=== PATIENT | male | born 1935 | race Caucasian/White ===

== ENCOUNTER 2018-11-06 18:11 | Outpatient (CLI) | payer MEDICARE, OTHER | END 2018-11-06 18:12 | disposition critical access hospital (66) | LOC: EMS 18:11 | PROVIDERS: ATTEND Surgery | DX: T14.90XA Injury, unspecified, initial encounter (principal); W19.XXXA Unspecified fall, initial encounter; Y92.002 Bathroom of unspecified non-institutional (private) residence as the place of occurrence of the external cause | CPT/HCPCS: A0425; A0429 ==

== ENCOUNTER 2018-11-06 18:27 | Emergency (ER) | payer MEDICARE, OTHER ==
[2018-11-06] MEDS ORDERED: SODIUM CHLORIDE 0.9% 500 ML IV ONE (18:35)
--- NOTE | 2018-11-06 18:36 | ED Physician Documentation ---
PD HPI Fall - Stated complaint Stated Complaint: GLF/HBD - History obtained from History obtained from: Patient, EMS - History of Present Illness Mechanism of injury: Lost balance (The patient states he remembers trying to get to the bathroom after coming home with his from a dinner republican. He had had several glasses of wine. He states he felt a little off balance and then in the bathroom felt lightheaded and fell over. He does not feel that he lost consciousness. He struck his face on the counter or sink. His states he she heard the noise and found him in the bathroom on the floor with some blood on the floor. He was awake but moaning. EMS was called and they found him on the floor still. They set him up onto the toilet to have a seat and he got lightheaded and almost fainted. They said his blood pressure at that time was 75 systolic but it improved with some IV fluids and after since being up for on the gurney for a few minutes. He was awake and conversant on route there was some slurring of speech likely consistent with alcohol use. There are no focal deficits.) Fall distance: Standing position Where injury occurred: Home Timing - onset: How many minutes ago (30), Today Injury(ies) location: Face (left periorbital area). No: Neck, Chest, Abdomen Quality of pain: Aching Associated symptoms: AMS (seemd dazed and confused with initial EMS impression). No: Neck pain, Weakness, Paresthesias, Dyspnea, Nausea / vomiting Worsens with: Palpation Contributing factors: Intoxicated (he says he drinks a glass of wine daily, and this evening had had several drinks at a dinner republican celebrating an old friend or such.). No: Anticoagulated Similar symptoms before: Has not had sx before Recently seen: Not recently seen Review of Systems Constitutional: denies: Fever Nose: denies: Rhinorrhea / runny nose, Congestion Throat: denies: Sore throat Cardiac: denies: Chest pain / pressure, Palpitations Respiratory: denies: Dyspnea, Cough GI: denies: Abdominal Pain, Nausea, Vomiting, Diarrhea, Bloody / black stool : denies: Dysuria, Frequency Skin: reports: Laceration (s) Neurologic: reports: Generalized weakness. denies: Focal weakness, Numbness, Confused, Headache Endocrine: denies: Weight loss, Easy bruising / bleeding PD PAST MEDICAL HISTORY - Past Medical History Cardiovascular: High cholesterol, Other Respiratory: None Neuro: None Endocrine/Autoimmune: None Musculoskeletal: Osteoarthritis - Present Medications Home Medications: Ambulatory Orders Medication Instructions Recorded Confirmed Aspirin 11/06/18 Irbesartan [Avapro] 11/06/18 Pravastatin Sodium 11/06/18 Zinc Gluconate [Zinc] 11/06/18 - Allergies Allergies/Adverse Reactions: Allergies Allergy/AdvReac Type Severity Reaction Status Date / Time No Known Drug Allergies Allergy Verified 11/06/18 18:35 PD ED PE NORMAL - Vitals Vital signs reviewed: Yes - General General: Alert and oriented X 3 (he is oriented though has a somewhat glassy- eyed look and some slow/slurring of speech which seems more likely intoxication than head injury. ), No acute distress, Well developed/nourished - HEENT HEENT: PERRL, EOMI, Pharynx benign, Other (Left periorbital area showing bruising and swelling with laceration of the lateral aspect of the eyebrow and the lateral zygoma area. There is a slight laceration split on the upper part of the lower eyelid laterally. There is no obvious injury of the eye itself. He has good extraocular motion without any orbital pain.) - Neck Neck: Supple, no meningeal sign, No bony TTP, No adenopathy - Cardiac Cardiac: RRR, No murmur - Respiratory Respiratory: Clear bilaterally - Abdomen Abdomen: Soft, Non tender - Derm Derm: Normal color, Warm and dry - Neuro Neuro: Alert and oriented X 3, plastic maker 2-12 intact, No motor deficit, No sensory deficit, Normal speech Eye Opening: Spontaneous Motor: Obeys Commands Verbal: Oriented GCS Score: 15 - Psych Psych: Normal mood Results - Vitals Vitals: Vital Signs - 24 hr 11/06/18 11/06/18 11/06/18 18:28 18:54 21:27 Temperature 36.4 C L Heart Rate 60 58 L 66 Respiratory 16 16 16 Rate Blood Pressure 127/74 129/70 123/65 O2 Saturation 100 100 98 Oxygen O2 Source Room air - Labs Labs: Laboratory Tests 11/06/18 11/06/18 19:02 19:02 WBC 6.3 RBC 3.85 L Hgb 12.4 L Hct 37.6 L MCV 97.7 H MCH 32.2 H MCHC 32.9 RDW 13.1 Plt Count 171 MPV 7.2 L Neut # (Auto) 4.0 Lymph # (Auto) 1.7 [place] # (Auto) 0.4 Eos # (Auto) 0.1 Baso # (Auto) 0.1 Absolute Nucleated RBC 0.00 Nucleated RBC % 0.0 Sodium 139 Potassium 3.9 Chloride 103 Carbon Dioxide 25 Anion Gap 11.0 BUN 20 Creatinine 0.8 Estimated GFR (MDRD) 93 Glucose 111 H Calcium 8.7 Total Bilirubin 0.6 AST 18 ALT 12 Alkaline Phosphatase 65 Total Protein 6.7 Albumin 3.8 Globulin 2.9 Albumin/Globulin Ratio 1.3 Lipase 83 H Ethyl Alcohol 254.8 - Rads (name of study) head and facial CT Radiology: Prelim report reviewed (no ICH, no facial fractures), See rad report Procedures - Laceration (location) left periorbital Length in cm: 3.5 Wound type: Linear (lateral eyebrow and left cheek lacs), Into subcut fat, Clean Neurovascular status: Sensory intact (around the eye and cheek has normal sensation), Motor intact Anesthesia: Lidocaine 1% with epi Wound Preparation: Wound explored, To the base, Other (cleansed with tap water well.). No: FB identified Skin layer closure: Nylon, Running, Size #-0 - enter number (5) PD MEDICAL DECISION MAKING - ED course Complexity details: reviewed results, re-evaluated patient (The patient is awake alert and ambulatory. He denies any blurred vision nausea confusion or diffuse headache. Is able to stand bedside with eyes closed with out wavering. He is able to walk back and forth in the room without any ataxia. He seems to be starting up on his feet to be able to be discharged in stable condition.), considered differential, d/w patient Departure - Departure Disposition: 01 Home, Self Care Clinical Impression: Fall from slip, trip, or stumble Qualifiers: Encounter type: initial encounter Qualified Code(s): W01.0XXA - Fall on same level from slipping, tripping and stumbling without subsequent striking against object, initial encounter Facial laceration Qualifiers: Encounter type: initial encounter Qualified Code(s): S01.81XA - Laceration without foreign body of other part of head, initial encounter Alcohol intoxication Qualifiers: Complication of substance-induced condition: uncomplicated Qualified Code(s): F10.920 - Alcohol use, unspecified with intoxication, uncomplicated Condition: Stable Record reviewed to determine appropriate education?: Yes Instructions: ED Laceration Facial Sutr Tape Follow-Up: Ric Sinclair MD [Primary Care Provider] - Comments: It is okay to wash and shower. Clean off the wound twice a day with soap and water, or peroxide and water. Apply some antibiotic ointment to it to keep it moist. Also to watch for signs of infection such as purulence, redness or increasing pain. Return to your primary care or the ER at the specified time for suture removal. Suture removal 8-10 days. You will have black and blue in the area (and you already do) from the injury. This will slowly fade through bruise colors and take a week or 2 to dissipate. Tylenol or ibuprofen if needed for pains. Your CT scan did not show any bleeding in the brain area nor any fractures of the facial bones.
[2018-11-06 19:05] LABS: BASOPHILS # (AUTO) 0.1 10^3/uL (0.0-0.1); BASOPHILS % (AUTO) 0.9 %; EOSINOPHILS # (AUTO) 0.1 10^3/uL (0.0-0.7); EOSINOPHILS % (AUTO) 1.7 %; HGB - HEMOGLOBIN 12.4 g/dL (14.0-18.0); LYMPHOCYTES # (AUTO) 1.7 10^3/uL (1.5-3.5); LYMPHOCYTES % (AUTO) 27.3 %; MEAN CORPUSCULAR HEMOGLOBIN 32.2 pg (27.0-31.0); MEAN CORPUSCULAR HGB CONC 32.9 g/dL (32.0-36.0); MEAN CORPUSCULAR VOLUME 97.7 fL (80.0-94.0); MEAN PLATELET VOLUME 7.2 fL (7.4-11.4); MONOCYTES # (AUTO) 0.4 10^3/uL (0.0-1.0); MONOCYTES % (AUTO) 6.4 %; NEUTROPHILS % (AUTO) 63.7 %; PLT - PLATELET COUNT 171 10^3/uL (130-450); RED BLOOD COUNT 3.85 10^6/uL (4.70-6.10); RED CELL DISTRIBUTION WIDTH 13.1 % (12.0-15.0); WHITE BLOOD COUNT 6.3 x10^3/uL (4.8-10.8)
[2018-11-06 19:18] LABS: ALBUMIN 3.8 g/dL (3.2-5.5); ALBUMIN/GLOBULIN RATIO 1.3 (1.0-2.2); BILIRUBIN,TOTAL 0.6 mg/dL (0.2-1.0); CALCIUM 8.7 mg/dL (8.5-10.3); CREATININE 0.8 mg/dL (0.6-1.2); TOTAL PROTEIN 6.7 g/dL (6.7-8.2)
--- NOTE | 2018-11-06 20:32 | CT Report ---
Reason: fall and struck left face Procedure Date: 11/06/2018 Accession Number: [id number] / [id number] Procedure: CT - Head W/O CPT Code: FULL RESULT: EXAM: CT HEAD EXAM DATE: 11/06/2018 07:48 PM. CLINICAL HISTORY: 83-year-old man status post fall and struck left side of face. COMPARISON: None. TECHNIQUE: Multiaxial CT images were obtained from the foramen magnum to the vertex. Reformats: Sagittal and coronal. IV contrast: None. In accordance with CT protocol optimization, one or more of the following dose reduction techniques were utilized for this exam: automated exposure control, adjustment of mA and/or KV based on patient size, or use of iterative reconstructive technique. FINDINGS: Parenchyma: No evidence of acute infarct, hemorrhage, or mass lesion. Left parenchyma demonstrates moderate hypoattenuation in the periventricular and deep cerebral white matter, most consistent with sequelae of chronic small vessel ischemic disease and a common finding in this age group. Ventricles and Extra-axial Spaces: Ventricles are symmetric and normal in size. No extra-axial hemorrhage or fluid collection. Orbits: Unremarkable. Sinuses: Paranasal sinuses and mastoid air cells are clear. Extracranial Soft Tissues and Bones: Soft tissue swelling and fat stranding is partially visualized in the left premaxillary soft tissues. Please see separate maxillofacial CT for complete evaluation. No calvarial fractures. IMPRESSION: 1. No acute intracranial abnormality. Specifically, no evidence of intracranial hemorrhage or calvarial fracture. 2. Swelling and fat stranding in the left premaxillary soft tissues, consistent with contusion. Please see separate maxillofacial CT for complete description. RADIA
--- NOTE | 2018-11-06 20:38 | CT Report ---
Reason: fall and struck left periorbital Procedure Date: 11/06/2018 Accession Number: [id number] / [id number] Procedure: CT - Facial Bones W/O CPT Code: FULL RESULT: EXAM: CT MAXILLOFACIAL WITHOUT CONTRAST EXAM DATE: 11/06/2018 07:49 PM. CLINICAL HISTORY: 83-year-old man status post fall and struck left side of face. COMPARISONS: None. TECHNIQUE: Thin-section axial images were acquired of the face without contrast. Post-processing: Coronal and sagittal reformats. Other: None. In accordance with CT protocol optimization, one or more of the following dose reduction techniques were utilized for this exam: automated exposure control, adjustment of mA and/or KV based on patient size, or use of iterative reconstructive technique. FINDINGS: Paranasal Sinuses: Mild, lobular mucosal thickening is present in the maxillary sinuses bilaterally, left side more than right No air-fluid levels. No fractures. Nasal Cavity and Bones: Clear. No fractures. Mandible: No fracture. Temporomandibular joints are in normal alignment. Skull Base and Mastoid Air Cells: No fractures. Mastoid air cells are clear. Orbits: Globes are intact. Optic nerves are symmetric and normal in caliber bilaterally. Intraconal and extraconal spaces are normal without mass lesion or fat stranding. Soft Tissues: Swelling and fat stranding is present in the left premaxillary soft tissues, consistent with contusion. Visualized Intracranial Contents: Unremarkable. IMPRESSION: 1. Soft tissue contusion in the left premaxillary soft tissues. No evidence of fracture. RADIA
[2018-11-06 21:28] VITALS: BP 123/65
== END 2018-11-06 21:47 | disposition home or self-care (01) ==
LOC: EDUNIT# → ED 18:27
DX: S01.81XA Laceration without foreign body of other part of head, initial encounter (principal); W18.30XA Fall on same level, unspecified, initial encounter; Y92.002 Bathroom of unspecified non-institutional (private) residence as the place of occurrence of the external cause; F10.920 Alcohol use, unspecified with intoxication, uncomplicated; E78.00 Pure hypercholesterolemia, unspecified
CPT/HCPCS: 12013; 36415; 70450; 70486; 80053; 80320; 83690; 85025; 96360; 96361; 99283

== ENCOUNTER 2021-04-09 07:23 | Outpatient (CLI) | payer MEDICARE, BC ==
--- NOTE | 2021-04-09 11:07 | CT Report ---
PROCEDURE: SOFT TISSUE NECK WO INDICATIONS: LOCALIZED SWELLING MASS OR LUMP OF NECK. Limited right vocal cord movement and right vo gabrielle cord thickening. TECHNIQUE: Non-contrast 3.0 mm axial sections acquired from the sella to the aortic arch. Additiona l oblique axial 3.0 mm sections acquired through the pharynx. 3 mm thick coronal reformats were gene rated. For radiation dose reduction, the following was used: automated exposure control, adjustment of mA and/or kV according to patient size. COMPARISON: Correlation is made with overlapping portions of head CT and facial bone CT, 11/06/2018 FINDINGS: Image quality: Excellent. Lymph nodes: No enlarged lymph nodes seen throughout the neck. Vessels: Non-opacified vessels appear normal in caliber. Atherosclerotic calcification is seen. Neck spaces: In this patient with this given history, scrutiny is given to focal cords. The vocal co rds and the false vocal folds demonstrate a normal, symmetric appearance, without masses, nodules, or riddhi asymmetry. No medialization can be seen. The oropharynx, nasopharynx, and pharynx demonstrate no mucosal lesions. The pyriform sinuses, epigl ottis, vallecula, and tongue base all appear normal. Extramucosal spaces appear unremarkable. Glands: The parotid and submandibular glands appear normal, without stones. The thyroid is normal i n size and there are no incidental findings. Miscellaneous: Visualized brain and orbits appear normal. Lung apices appear clear. Superficial so ft tissues appear normal. Moderate to prominent cervical spine degenerative change can be seen. IMPRESSION: No vocal cord lesion is identified. A focal mass is not identified to the limits of this noncontrast study. No frankly enlarged lymph nodes are seen. Moderate to prominent cervical spine degenerative change is incidentally noted. Reviewed by: Glenroy Plaza MD on 04/09/2021 10:05 AM ANN Approved by: Glenroy Plaza MD on 04/09/2021 10:05 AM ANN Station ID: [id number]
== END 2021-04-09 07:24 | disposition home or self-care (01) ==
LOC: DI 07:23
PROVIDERS: ATTEND Otolaryngology
DX: R22.1 Localized swelling, mass and lump, neck (principal)

== ENCOUNTER 2021-09-03 15:54 | Outpatient (CLI) | payer MEDICARE, BC ==
--- NOTE | 2021-09-04 10:57 | Ultrasound Report ---
PROCEDURE: Ankle Brachial Index INDICATIONS: CLAUDICATION TECHNIQUE: Ankle-brachial indices were obtained bilaterally and recorded. COMPARISONS: None. FINDINGS: Right: Posterior tibial artery: 62.3 cm/sec, with monophasic waveforms. Anterior tibial artery/dorsalis pedis artery: 102.3/3.8 cm/sec, with monophasic waveforms Left: Posterior tibial artery: 120cm/sec, with monophasic waveforms. Anterior tibial artery/dorsalis pedis artery: 57.4/18.5cm/sec, with monophasic waveforms Right ankle brachial index (DARRON): 1.0 Left ankle brachial index (DARRON): 0.9 Grayscale: Diffuse calcific plaque noted throughout the imaged vasculature IMPRESSION: Right DARRON is within normal limits. The left DARRON is slightly decreased at 0.9 which may represent mild peripheral arterial disease. Recommend clinical correlation for claudication. Elevated velocities in the right anterior tibial artery and the left posterior tibial artery suggesti ve of moderate stenosis. There is diffuse atherosclerotic plaque noted throughout the imaged vasculat ure. Reviewed by: Ric Whitaker DO on 09/04/2021 9:56 AM ANN Approved by: Ric Whitaker DO on 09/04/2021 9:56 AM ANN Station ID: [id number]
== END 2021-09-03 15:55 | disposition home or self-care (01) ==
LOC: DI 15:54
PROVIDERS: ATTEND Internal Medicine Cardiovascular Disease
DX: I73.9 Peripheral vascular disease, unspecified (principal)
CPT/HCPCS: 93922

== ENCOUNTER 2021-11-22 11:30 | Emergency (ER) | payer MEDICARE, BC ==
[2021-11-22 11:49] VITALS: BP 130/51
[2021-11-22] MEDS ORDERED: lidocaine 1% 20 ML MDV SUBQ ONE (12:19)
[2021-11-22] MEDS ORDERED: TETANUS/DIPHTHERIA/PERTUSSIS 0.5 ML SYRINGE IM ONE (12:27)
--- NOTE | 2021-11-22 12:29 | ED Physician Documentation ---
PD HPI UPPER EXT INJURY - Stated complaint Stated Complaint: RT FINGER LAC - Chief complaint Chief Complaint: Laceration - History obtained from History obtained from: Patient (86-year-old right-handed gentleman presents after shutting his right index finger in the car door at home just prior to arrival. No other injuries. Tetanus is unknown.) PD PAST MEDICAL HISTORY - Past Medical History Cardiovascular: High cholesterol, Other Respiratory: None Neuro: None Endocrine/Autoimmune: None Musculoskeletal: Osteoarthritis - Past Surgical History Past Surgical History: No - Present Medications Home Medications: Ambulatory Orders Medication Instructions Recorded Confirmed Aspirin 11/06/18 Irbesartan [Avapro] 11/06/18 Pravastatin Sodium 11/06/18 Zinc Gluconate [Zinc] 11/06/18 Bacitracin Zinc Oint 1 applic TOP BID #1 gm 11/22/21 cephALEXin [Keflex] 500 mg PO Q6H #20 cap 11/22/21 - Allergies Allergies/Adverse Reactions: Allergies Allergy/AdvReac Type Severity Reaction Status Date / Time No Known Drug Allergies Allergy Verified 11/22/21 11:49 - Social History Does the pt smoke?: No Smoking Status: Never smoker Does the pt drink ETOH?: Yes Does the pt have substance abuse?: No - Immunizations Immunizations are current?: Yes PD ED PE NORMAL - Vitals Vital signs reviewed: Yes - General General: Alert and oriented X 3, No acute distress - Extremities Extremities: Other (On the ulnar side of the pulp of the right index finger is a 1 cm laceration going circumferentially around the digit. He is modestly numb distal to this but has excellent capillary refill and range of motion.) - Neuro Neuro: Alert and oriented X 3, Normal speech Results - Vitals Vitals: Vital Signs - 24 hr 11/22/21 11:46 Temperature 36.0 C L Heart Rate 55 L Respiratory 16 Rate Blood Pressure 130/51 L O2 Saturation 100 Oxygen O2 Source Room air - Rads (name of study) R 2nd finger XR Radiology: EMP read contemporaneously ([facility]) Procedures - Laceration (location) R 2nd finger Length in cm: 1 Wound type: Curved Neurovascular status: Vascular intact Tendon involvement: Tendon intact Anesthesia: Other (Digital block with 1% lidocaine with excellent anesthesia) Wound preparation: Irrigated copiously NS, Other (The nail had about a 40% subungual hematoma which was trephinated using electrocautery) Skin layer closure: Nylon, Interrupted (3), Size #-0 - enter number (4-0), Sutures - enter # (3) Other: Tetanus booster given - Splint (location) R 2nd finger Splint applied by: Physician Type of splint: Metal foam finger splint Other: No complications, Neurovascular intact Departure - Departure Disposition: 01 Home, Self Care Clinical Impression: Finger laceration Qualifiers: Encounter type: initial encounter Finger: index finger Damage to nail status: with damage Foreign body presence: without foreign body Laterality: right Qualified Code(s): S61.310A - Laceration without foreign body of right index finger with damage to nail, initial encounter Open fracture of finger of right hand Qualifiers: Encounter type: initial encounter Finger: index finger Phalanx: distal Fracture alignment: nondisplaced Qualified Code(s): S62.660B - Nondisplaced fracture of distal phalanx of right index finger, initial encounter for open fracture Condition: Good Record reviewed to determine appropriate education?: Yes Instructions: ED Fx Finger Open Prescriptions: Bacitracin Zinc Oint 1 applic TOP BID #1 gm cephALEXin [Keflex] 500 mg PO Q6H #20 cap Comments: I sent the prescription for antibiotics to [facility] [place] You can remove the current dressing tomorrow and wash briefly with soap and water. Then keep it moist with the bacitracin antibiotic ointment and keep a dressing on it covered by the splints that I gave you. Follow-up with your doctor in 2 weeks for recheck and suture removal. Return for signs of infection which would include increased pain, redness, swelling, drainage. Discharge Date/Time: 11/22/21 13:04
[2021-11-22] MEDS ORDERED: cephALEXin 250 MG CAPSULE PO STA (12:46)
--- NOTE | 2021-11-22 13:13 | XRAY Report ---
PROCEDURE: Finger(s) RT INDICATIONS: finger inj TECHNIQUE: AP hand, 2 views of the second finger(s) acquired. COMPARISON: None FINDINGS: Bones: Mildly displaced distal tuft fracture of distal phalanx of second finger. No other fractures o r dislocations. No suspicious bony lesions. Soft tissues: No suspicious soft tissue calcifications. IMPRESSION: Distal tuft fracture, distal phalanx of second finger. Reviewed by: Thanh Choi MD on 11/22/2021 1:11 PM [facility] Approved by: Thanh Choi MD on 11/22/2021 1:11 PM [facility] Station ID: [id number]
== END 2021-11-22 13:04 | disposition home or self-care (01) ==
LOC: ED 11:30
DX: S62.660B Nondisplaced fracture of distal phalanx of right index finger, initial encounter for open fracture (principal); S61.310A Laceration without foreign body of right index finger with damage to nail, initial encounter; W23.0XXA Caught, crushed, jammed, or pinched between moving objects, initial encounter; Y92.810 Car as the place of occurrence of the external cause; Z79.82 Long term (current) use of aspirin
CPT/HCPCS: 11740; 12001; 73140; 90471; 90715; 99283; A9270

== ENCOUNTER 2021-12-06 08:09 | Emergency (ER) | payer MEDICARE, BC ==
[2021-12-06 08:23] VITALS: BP 127/54
[2021-12-06] MEDS: BACITRACIN ZINC OINT 1 PACKET TOP STA (08:37)
--- NOTE | 2021-12-06 08:37 | ED Physician Documentation ---
PD HPI SKIN - Stated complaint Stated Complaint: SUTURE REMOVAL RT INDEX - Chief complaint Chief Complaint: Laceration - History obtained from History obtained from: Patient - Additional information Additional information: The patient comes to the emergency department chief complaint of here for suture removal. The patient was seen almost 2 weeks ago after a crush injury to his right index finger with resultant laceration. The patient states the wound has been healing very well. No redness, swelling, or drainage. He states that all his sutures are still in place. No other complaints at this time. Review of Systems Ten Systems: 10 systems reviewed and negative Constitutional: reports: Reviewed and negative Eyes: reports: Reviewed and negative Ears: reports: Reviewed and negative Nose: reports: Reviewed and negative Throat: reports: Reviewed and negative Cardiac: reports: Reviewed and negative Respiratory: reports: Reviewed and negative GI: reports: Reviewed and negative : reports: Reviewed and negative Skin: reports: Laceration (s) (Healing, here for suture removal.) Musculoskeletal: reports: Reviewed and negative Neurologic: reports: Reviewed and negative Psychiatric: reports: Reviewed and negative Endocrine: reports: Reviewed and negative Immunocompromised: reports: Reviewed and negative PD PAST MEDICAL HISTORY - Past Medical History Cardiovascular: High cholesterol, Other Respiratory: None Neuro: None Endocrine/Autoimmune: None Musculoskeletal: Osteoarthritis - Past Surgical History Past Surgical History: No - Present Medications Home Medications: Ambulatory Orders Medication Instructions Recorded Confirmed Aspirin 11/06/18 Irbesartan [Avapro] 11/06/18 Pravastatin Sodium 11/06/18 Zinc Gluconate [Zinc] 11/06/18 Bacitracin Zinc Oint 1 applic TOP BID #1 gm 11/22/21 cephALEXin [Keflex] 500 mg PO Q6H #20 cap 11/22/21 - Allergies Allergies/Adverse Reactions: Allergies Allergy/AdvReac Type Severity Reaction Status Date / Time No Known Drug Allergies Allergy Verified 12/06/21 08:19 - Social History Does the pt smoke?: No Smoking Status: Never smoker Does the pt drink ETOH?: Yes Does the pt have substance abuse?: No - Immunizations Immunizations are current?: Yes PD ED PE NORMAL - Vitals Vital signs reviewed: Yes - General General: Alert and oriented X 3, No acute distress, Well developed/nourished - HEENT HEENT: Atraumatic, PERRL, EOMI, Moist mucous membranes - Cardiac Cardiac: Strong equal pulses - Respiratory Respiratory: No respiratory distress - Derm Derm: Normal color, Warm and dry, No rash, Other (Well-healed laceration on ulnar aspect of right index finger, up to edge of the nail. [address] and intact. No erythema, induration, or drainage) - Extremities Extremities: No deformity, Normal ROM s pain, No edema - Neuro Neuro: Alert and oriented X 3, emergency room clinician 2-12 intact, No motor deficit, No sensory deficit, Normal speech - Psych Psych: Normal mood, Normal affect Results - Vitals Vitals: Vital Signs - 24 hr 12/06/21 08:17 Temperature 36.5 C Heart Rate 62 Respiratory 14 Rate Blood Pressure 127/54 L O2 Saturation 100 Oxygen O2 Source Room air PD MEDICAL DECISION MAKING - ED course Complexity details: considered differential, d/w patient ED course: Sutures were removed and wound was found to be stable and well adhesed. The wound was cleaned and bacitracin and a Band-Aid applied. We have discussed the usual indications for return. Departure - Departure Disposition: 01 Home, Self Care Clinical Impression: Visit for suture removal Condition: Stable Instructions: ED Wound Check Sutr Remove No Infec
== END 2021-12-06 08:40 | disposition home or self-care (01) ==
LOC: ED 08:09
DX: S61.210D Laceration without foreign body of right index finger without damage to nail, subsequent encounter (principal); X58.XXXD Exposure to other specified factors, subsequent encounter
CPT/HCPCS: 99281; A9270